=== PATIENT | male | born 1965 | race African-American/Black ===

== ENCOUNTER 2020-10-15 12:16 | Observation (INO) | payer MEDICAID ==
[~2020-10-15] VITALS: Ht 172.7 cm; Wt 87.7 kg
--- NOTE | 2020-10-15 16:17 | NUR ---
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
--- NOTE | 2020-10-15 16:18 | NUR ---
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
[2020-10-15] MEDS ORDERED: HYDROmorphone 1 MG/ML, 1ML INJ IM ONE (17:00)
--- NOTE | 2020-10-15 17:01 | NUR ---
DR. GARCIA AT BEDSIDE-NPO AT MIDNIGHT. SIPS UNTIL THEN ICE PACK APPLIED TO MEDICATE FOR PAIN SHORTLY
[2020-10-15] MEDS ORDERED: HYDROmorphone 2 MG/ML, 1ML ONE (17:11)
--- NOTE | 2020-10-15 17:26 | NUR ---
rapid covid swab obtained per guidelines (for surgical clearance) -walked to lab
--- NOTE | 2020-10-15 18:10 | NUR ---
provided with clear liquid diet with reassessment pain improved s.p medicine/ice to 03/28
[2020-10-15 20:18] VITALS: BP 146/100
[2020-10-15] MEDS ORDERED: ONDANSETRON 2MG/ML, 2ML IVPush PRN (20:30)
[2020-10-15] MEDS ORDERED: ACETAMINOPHEN 325 MG TABLET PO PRN (20:30)
[2020-10-15] MEDS: LACTATED RINGERS 1,000 ML IV SCH (22:59)
[2020-10-16 00:02] VITALS: BP 151/99
[2020-10-16] MEDS: morphine SULFATE 10 MG/ML, 1ML IVPush PRN ×2 (05:32→08:41)
[2020-10-16] MEDS: LACTATED RINGERS 1,000 ML IV SCH ×2 (06:30→15:33)
[2020-10-16 07:45] VITALS: BP 176/98
[2020-10-16 10:12] LABS: BASOPHILS % (AUTO) 1 % (0-1); EOSINOPHILS % (AUTO) 2 % (1-7); LYMPHOCYTES % (AUTO) 30 % (22-44); MEAN PLATELET VOLUME 8.2 fL (7.4-10.4); MONOCYTES % (AUTO) 9 % (2-9); NEUTROPHILS % (AUTO) 58 % (42-75); PLATELET COUNT 244 x10^3/uL (130-400); RED BLOOD COUNT 4.62 x10^6/uL (4.38-5.82); RED CELL DISTRIBUTION WIDTH 11.8 % (9.4-14.8)
[2020-10-16] MEDS ORDERED: OXYMETAZOLINE NASAL SPRAY 0.05%,30ML ONE (10:18)
[2020-10-16] MEDS ORDERED: EPINEPHRINE 1 MG/ML, 1ML ONE (10:18)
[2020-10-16] MEDS ORDERED: LIDOCAINE 1%, 20ML ONE (10:18)
[2020-10-16] MEDS ORDERED: BALANCED SALT OPHTH IRRIG SOLN 18ML ONE (10:18)
[2020-10-16 10:23] LABS: ALBUMIN 3.4 g/dL (3.4-5.0); ANION GAP 5 mmol/L (5-15); CHLORIDE 107 mmol/L (98-107)
[2020-10-16 10:28] LABS: ALANINE AMINOTRANSFERASE 51 U/L (12-78); ALKALINE PHOSPHATASE 72 U/L (45-117); BILIRUBIN,TOTAL 0.9 mg/dL (0.2-1.0); CREATININE 0.85 mg/dL (0.7-1.3); TOTAL PROTEIN 7.7 g/dL (6.4-8.2)
[2020-10-16] MEDS ORDERED: FENTANYL PF 250 MCG/5ML ONE (10:38)
[2020-10-16] MEDS ORDERED: MIDAZOLAM 1 MG/ML, 2ML ONE (10:38)
[2020-10-16] MEDS ORDERED: CHLORHEXIDINE 15 ML UDC ONE (10:49)
[2020-10-16] MEDS ORDERED: CHLORHEXIDINE 15 ML UDC PO ONE (11:00)
[2020-10-16] MEDS ORDERED: CEFAZOLIN 1,000 MG ONE ×2 (11:06→12:19)
[2020-10-16] MEDS ORDERED: EPHEDRINE 50 MG/ML, 1ML ONE (11:06)
[2020-10-16] MEDS ORDERED: LABETALOL 5MG/ML, 20ML IV PRN (11:30)
[2020-10-16] MEDS ORDERED: OXYcodone 5 MG/5 ML ORAL.SOL UDC PO PRN (11:30)
[2020-10-16] MEDS ORDERED: LORazepam 2 MG/ML, 1ML IVPush PRN (11:30)
[2020-10-16] MEDS ORDERED: hydrALAzine 20 MG/ML, 1ML IV PRN (11:30)
[2020-10-16] MEDS ORDERED: ACETAMINOPHEN 325 MG TABLET PO PRN (11:30)
[2020-10-16] MEDS ORDERED: HYDROmorphone 1 MG/ML, 1ML INJ IVPush PRN (11:30)
[2020-10-16] MEDS ORDERED: ONDANSETRON 2MG/ML, 2ML IVPush PRN (11:30)
[2020-10-16] MEDS ORDERED: PROMETHAZINE 25 MG/ML, 1ML IVPush PRN (11:30)
[2020-10-16] MEDS ORDERED: PROMETHAZINE 12.5 MG SUPP PR PRN (11:30)
[2020-10-16] MEDS ORDERED: MEPERIDINE/PF 25MG/0.5ML IVPush PRN (11:30)
[2020-10-16] MEDS ORDERED: METHOCARBAMOL 1,000 MG in DEXTROSE 5% 100 ML IV PRN (12:00)
[2020-10-16] MEDS ORDERED: EPINEPHRINE 1 MG/ML, 1ML INFIL ONE (12:11)
[2020-10-16] MEDS ORDERED: LIDOCAINE 1%, 20ML INFIL ONE (12:11)
[2020-10-16] MEDS ORDERED: SUCCINYLCHOLINE 20 MG/ML, 10ML ONE (12:19)
[2020-10-16] MEDS ORDERED: SUGAMMADEX 200 MG/2 ML IVPush ONE (12:19)
[2020-10-16] MEDS ORDERED: PROPOFOL 10 MG/ML, 20ML ONE (12:19)
[2020-10-16] MEDS ORDERED: ONDANSETRON 2MG/ML, 2ML ONE (12:19)
[2020-10-16] MEDS ORDERED: GLYCOPYRROLATE 0.2MG/1ML, 5ML ONE (12:19)
[2020-10-16] MEDS ORDERED: NEOSTIGMINE 1 MG/ML, 10ML ONE (12:19)
[2020-10-16] MEDS ORDERED: ROCURONIUM 10MG/ML,5ML ONE (12:19)
[2020-10-16] MEDS ORDERED: FENTANYL PF 100 MCG/2ML ONE (14:15)
[2020-10-16] MEDS: FENTANYL PF 100 MCG/2ML IV PRN ×2 (14:17→14:29)
[2020-10-16 15:15] VITALS: BP 154/100
[2020-10-16] MEDS ORDERED: ACETAMINOPHEN 500 MG TABLET PO PRN (16:00)
[2020-10-16] MEDS: MORPHINE SULFATE 4 MG/ML, 1ML IV PRN (18:16)
[2020-10-16] MEDS: NAPROXEN 500 MG TABLET PO PRN (19:55)
[2020-10-16] MEDS: CEFAZOLIN PMX 1GM/50ML 50 ML IV SCH (19:55)
[2020-10-16 20:13] VITALS: BP 126/76
[2020-10-16 23:51] VITALS: BP 131/76
[2020-10-17] MEDS: MORPHINE SULFATE 4 MG/ML, 1ML IV PRN (00:22)
[2020-10-17] MEDS: LACTATED RINGERS 1,000 ML IV SCH ×2 (02:56→12:24)
[2020-10-17 04:03] VITALS: BP 125/65
[2020-10-17] MEDS: CEFAZOLIN PMX 1GM/50ML 50 ML IV SCH ×2 (04:12→12:24)
[2020-10-17 06:11] LABS: BASOPHILS % (AUTO) 1 % (0-1); EOSINOPHILS % (AUTO) 0 % (1-7); LYMPHOCYTES % (AUTO) 13 % (22-44); MEAN CORPUSCULAR HEMOGLOBIN 29.7 pg (27.5-34.5); MEAN CORPUSCULAR HGB CONC 32.5 g/dL (33.2-36.2); MEAN PLATELET VOLUME 8.4 fL (7.4-10.4); MONOCYTES % (AUTO) 11 % (2-9); NEUTROPHILS % (AUTO) 76 % (42-75); PLATELET COUNT 241 x10^3/uL (130-400); RED BLOOD COUNT 4.22 x10^6/uL (4.38-5.82); RED CELL DISTRIBUTION WIDTH 11.6 % (9.4-14.8)
[2020-10-17 06:26] LABS: ANION GAP 7 mmol/L (5-15); CALCIUM 8.5 mg/dL (8.5-10.1); CHLORIDE 106 mmol/L (98-107)
[2020-10-17 06:27] LABS: CREATININE 0.92 mg/dL (0.7-1.3)
[2020-10-17 07:05] VITALS: BP 140/77
[2020-10-17] MEDS: NAPROXEN 500 MG TABLET PO PRN (08:55)
[2020-10-17 13:05] VITALS: BP 149/78
[2020-10-17] MEDS ORDERED: AMOX1TAB64 PO (13:34)
[2020-10-17] MEDS ORDERED: NAPR-856 PO (13:34)
== END 2020-10-17 13:45 | disposition home or self-care (01) ==
LOC: OR 20:05 → EDIP 20:12 → 4NE 20:16 → OR 20:25 → 4NE 20:41
PROVIDERS: ADMIT Family Medicine; ATTEND Internal Medicine
DX: S02.652A Fracture of angle of left mandible, initial encounter for closed fracture (principal); Z20.822 Contact with and (suspected) exposure to COVID-19; Y04.0XXA Assault by unarmed brawl or fight, initial encounter; Y93.89 Activity, other specified; Y92.89 Other specified places as the place of occurrence of the external cause
CPT/HCPCS: 21461; 36415; 70486; 80048; 80053; 83735; 85025; 87635; 96361; 96365; 96366; 96372; 96375; 96376; 99284; C1713; G0378; J0171; J0690; J1170; J2250; J2270; J2405; J2704; J3010; J3490; J7120; J2710; J0330